=== PATIENT | male | born 1950 | race Caucasian/White ===

== ENCOUNTER 2016-12-21 10:04 | Emergency (ER) | payer BC, MEDICARE ==
[~2016-12-21 10:04] MED LIST: /GLIP10TAB OR; /ONDA4TA OR; /TAMS4CA OR; ACTO30TA OR; ALLO300T OR; ASPI81TA45 OR; DETR4CAP OR; GLUC500T3 OR; OMEP20TA7 OR; OXYC10TA12 OR; VICO5TAB OR; ZEBE5TAB OR; janumet
[2016-12-21] MEDS ORDERED: MORPHINE 4 MG/ML 1ML SYRINGE As Ordered ONE ×2 (10:31→12:15)
[2016-12-21] MEDS ORDERED: ONDANSETRON 4MG/2ML VIAL (J2405) As Ordered ONE ×2 (10:32→11:45)
[2016-12-21 10:59] LABS: BASO # 0.1 K/mm3 (0.0-0.2); BASO % 0.8 % (0.0-1.0); EOS # 0.3 K/mm3 (0.0-0.50); LARGE UNSTAINED CELL # 0.1 K/mm3 (0.0-0.4); LARGE UNSTAINED CELL % 1.5 % (0.0-4.0); LYMPH # 1.2 K/mm3 (1.5-4.5); LYMPH % 11.6 % (24.0-44.0); MEAN CORPUSCULAR HEMOGLOBIN 30.4 pg (27.0-33.0); MEAN CORPUSCULAR HGB CONC 33.2 g/dl (32.0-36.5); MEAN CORPUSCULAR VOLUME 91.7 fl (80.0-96.0); MONO # 0.8 K/mm3 (0.0-0.8); MONO % 8.5 % (0.0-5.0); NEUTROPHILS # 6.8 K/mm3 (1.8-7.7); NEUTROPHILS % 74.6 % (36.0-66.0); PLATELET COUNT, AUTOMATED 185 k/mm3 (150-450); WHITE BLOOD COUNT 9.2 K/mm3 (4.0-10.0)
--- NOTE | 2016-12-21 11:02 | REP ---
Clinical: Renal colic. Comparison: 02/20/2016. Findings: The right kidney is enlarged and demonstrates mild perinephric stranding along with grade III hydronephrosis with heterogeneous material in the proximal renal collecting system and no evidence for hydroureter, nephrolithiasis or obstructing ureteral calculus. The left kidney demonstrates mild perinephric stranding along with chronic cortical changes and atrophy as well as nonobstructing intrarenal calculi up to approximately 9 mm. No left-sided hydroureter nephrosis is appreciated and no obstructing ureteral calculi identified. The bladder is unremarkable. The prostate gland is relatively normal for age. Liver demonstrates stable 3 cm hypodensity in the right lobe which may reflect hemangioma or cyst. The spleen, pancreas, gallbladder, and bilateral adrenal glands are normal for noncontrast evaluation. The enteric system is without obstruction or acute inflammatory process. Sigmoid diverticula noted without acute diverticulitis. Pelvis again demonstrates relatively normal bladder and age appropriate prostate gland. Small fat containing inguinal hernias noted. No ascites. No adenopathy. No free air. At atherosclerotic changes of the aorta and branch vessels noted without aneurysm. Musculoskeletal structures demonstrate degenerative changes primarily involving the lumbosacral spine and left hip. Lung bases demonstrate chronic interstitial disease (left greater than right). Impression: 1. Right-sided hydronephrosis with heterogeneous debris in the renal collecting system and normal ureter without nephroureterolithiasis. Findings suggest pyelonephritis and require urinalysis for correlation. The left kidney demonstrates chronic atrophic changes and scarring along with nonobstructing calculi up to 9 mm. 2. Stable hepatic hypodensity likely representing hemangioma or cyst. Unchanged when compared through 2010. 3. Scattered sigmoid diverticula. 4. Atherosclerotic changes of the vasculature and degenerative changes the musculoskeletal structures. 5. Chronic changes of bilateral lung bases. Signed by Brad Mejia MD 12/21/2016 10:54 A
[2016-12-21 11:07] LABS: ALBUMIN 3.4 GM/DL (3.2-5.2); ALBUMIN/GLOBULIN RATIO 0.69 (1.00-1.93); BILIRUBIN,DIRECT 0.1 MG/DL (0.0-0.2); BILIRUBIN,TOTAL 0.4 MG/DL (0.2-1.0); CALCIUM LEVEL 9.3 MG/DL (8.8-10.2); CREATININE FOR GFR 2.8 MG/DL (0.70-1.30); GLOMERULAR FILTRATION RATE 24.3 (>49); POTASSIUM SERUM 4.9 MEQ/L (3.5-5.1); TOTAL PROTEIN 8.3 GM/DL (6.4-8.2)
[2016-12-21] MEDS ORDERED: PERCOCET 5MG/325MG TAB As Ordered ONE (13:41)
--- NOTE | 2016-12-21 13:52 | EDDOCDS ---
Nurse's Notes [facility] Name: Jimbo Matthews Age: 66 yrs Sex: Male : 1950 Arrival Date: 12/21/2016 Time: 10:04 Bed I3 / M3 Private MD: Pawan, [facility] Care Diagnosis: Calculus of kidney-9mm Left Intrarenal Calculus;Other hydronephrosis-Right kidney, No stone on CT (chronic);Lower abdominal pain, unspecified-RLQ with Right Flank Pain;Abnormal results of kidney function studies-Chronic Renal Failure;Diverticulosis of large intestine without perforation or abscess without bleeding Presentation: 12/21 10:10 Presenting complaint: Patient states: pain right abdominal pain that is now radiating srm to right flank. hematuria started for past week. in crease in pain. able to urinate without difficulty. hx of kidney stones. Acute neurological deficits are not present. Mechanism of Injury: No Mechanism of Injury. Adult Sepsis Screening: The patient does not have new or worsening altered mentation. Patient's respiratory rate is less than 22. Systolic blood pressure is greater than 100. Patient has a qSOFA score of 0- Negative Sepsis Screen. Suicide/Homicide risk assessment- the patient denies having any suicidal and/or homicidal ideations and does not present with any other emotional, behavioral or mental health complaints. 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 Transition of care: patient was not received from another setting of care. 10:10 Acuity: ELIAN Level 3 [facility] 10:10 Method Of Arrival: Walkin/Carried/Asstd [facility] Triage Assessment: 10:17 General: Appears uncomfortable, Behavior is appropriate for age, cooperative. Pain: srm Pain currently is 6 out of 10 on a pain scale. Musculoskeletal: Reports right flank pain'. Historical: - Allergies: no known allergies; - Home Meds: 1. loratadine 10 mg Oral tab 1 tab once daily (Last dose: 12/21/2016 07:30) 2. Dulera 100-5 mcg/actuation inhalation HFAA prn 3. amitriptyline 150 mg oral tab hs (Last dose: 12/20/2016) 4. Vitamin D Oral 30500 unit Q 2 weeks 5. omeprazole 20 mg Oral cpDR 1 cap once daily (Last dose: 12/21/2016 07:30) 6. montelukast 10 mg oral tab 1 tab once daily (Last dose: 12/21/2016 07:30) 7. Lantus 47 units Sub-Q twice a day (Last dose: 12/21/2016 07:30) 8. Humalog sliding scale Sub-Q three times a day 9. pota citrate CR 1080mg twice a day 10. allopurinol 300 mg Oral tab 1 tab once daily (Last dose: 12/21/2016 07:30) 11. tolterodine 4 mg oral cp24 1 cap once daily (Last dose: 12/21/2016 07:30) 12. carvedilol 6.25 mg oral tab 1 tab 2 times per day (Last dose: 12/21/2016 07:30) 13. furosemide 20 mg Oral tab 1 tab once daily (Last dose: 12/21/2016 07:30) 14. Entresto 24-26 mg- 1 in am and half pm oral tab 15. aspirin 81 mg Oral TbEC 1 tab weekly 16. atorvastatin 40 mg oral tab 1 tab once daily (Last dose: 12/21/2016 07:30) - PMHx: Diabetes - IDDM: controlled; Hemochromatosis; Hypertension; Kidney stones; Myocardial infarction; CHF; renal cell cancer right kidney; - PSHx: Appendectomy; Lithitripsy; - Social history: Smoking status: Chewing Tobacco No barriers to communication noted, The patient speaks fluent Afghan, Speaks appropriately for age. - Family history: Not pertinent. - : The pt / caregiver states he / she is not on anticoagulants. Home medication list is obtained from the patient. - Exposure Risk Screening:: None identified. Screenin:49 Screening information is obtained from the patient. Fall risk: No risks identified. pml Assistance ADL's: requires no assistance with activities of daily living. Abuse/DV Screen: The patient / caregiver reports he/she is: not in a situation that causes fear, pain or injury. Nutritional screening: No deficits noted. Advance Directives: Currently, there is no health care proxy. home support is adequate. Assessment: 10:49 General: Appears in no apparent distress, comfortable, Behavior is appropriate for age, pml cooperative. Pain: Pain: Location: anterior aspect of right lateral abdomen and right lower quadrant Pain currently is 7 out of 10 on a pain scale. 10:49 Neurological: Level of Consciousness is awake, alert, Oriented to person, place, time. pml Cardiovascular: Capillary refill < 3 seconds. Respiratory: Airway is patent Respiratory effort is even, unlabored, Respiratory pattern is regular, symmetrical. GI: Abdomen is non- distended. : Reports hematuria. Derm: Skin is pink, warm & dry. 11:44 General: pt up OOB to bathroom - reports nausea and dizziness. resps easy and pml unlabored, skin p/w/d. . 11:50 General: pt vomited moderate amount of undigested food. returned to stretcher, pml medicated as indicated on emar. . 12:29 General: pt reports pain in lower abdomen. medicated as indicated on emar. resps easy pml and unlabored, unable to void. straight cath'ed as ordered. . 13:42 General: continues to report lower abdominal pain. medicated as indicated on emar. pml reports nausea is resolved. peacock to gravity drainage.. 13:43 General: Appears in no apparent distress, Behavior is appropriate for age, cooperative. pml Neurological: Level of Consciousness is awake, alert, Oriented to person, place, time. Cardiovascular: Capillary refill < 3 seconds. Respiratory: Airway is patent Respiratory effort is even, unlabored. GI: Abdomen is non- distended. : Peacock in place to gravity drainage. Derm: Skin is pink, warm & dry. Vital Signs: 10:09 BP 134 / 82; Pulse 70; Resp 18; Temp 96; Pulse Ox 96% ; Weight 116.57 kg; Height 6 ft. [facility] 2 in. (187.96 cm); Pain 6/10; 13:47 BP 130 / 85; Pulse 69; Resp 16; Temp 99.3(O); Pulse Ox 92% on R/A; Pain 8/10; sew 10:09 Body Mass Index 33.00 (116.57 kg, 187.96 cm) [facility] Vitals: 10:09 Log In Time: December 21, 2016 at 10:09. [facility] ED Course: 10:08 Patient visited by Karen Kennedy, Battery Installer. [facility] 10:08 Patient moved to Waiting [facility] 10:09 [facility] Care is Private Physician. [facility] 10:09 Patient moved to Pre E [facility] 10:11 Triage Initiated srm 10:17 Patient moved to I3 / M3 srm 10:18 Abby Farrell [facility] is [facility]. ef1 10:18 Beba Melendez MD is Attending Physician. ef1 10:18 Patient visited by Abby Farrell PA-C. ef1 10:42 Amylase Sent. dls 10:42 Basic Metabolic Profile Sent. dls 10:43 CBC with Diff Sent. dls 10:43 Lipase Sent. dls 10:43 Liver Profile Sent. dls 10:48 [facility] Payment Agreement was scanned into [employer] and attached to record. jp5 10:49 The patient / caregiver is instructed regarding the plan of care and ED course. Patient pml has correct armband on for positive identification. Placed in gown. Bed in low position. Call light in reach. Side rails up X2. 10:49 Inserted peripheral IV: 18gauge IV in left antecubital area and blood collected. pml Patient tolerated the procedure well. 10:51 Patient visited by Rozina Aiken RN. pml 11:21 Patient visited by Abby Farrell PA-C. ef1 11:30 CT ABD & PELVIS: No Contrast Returned. EDMS 11:37 Patient visited by Abby Farrell PA-C. ef1 11:44 Patient visited by Rozina Aiken RN. pml 11:51 Patient visited by Rozina Aiken RN. pml 12:05 Bladder Scan completed Results: 329 ml. pml 12:11 Patient visited by Abby Farrell PA-C. ef1 12:29 Straight cath inserted 16 Fr. returned bloody urine. Patient tolerated well. pml 12:31 Patient visited by Rozina Aiken RN. pml 12:55 Patient visited by Abby Farrell PA-C. ef1 13:30 [facility] is Referral Physician. ef1 13:42 Peacock cath inserted 18 Fr. Balloon inflated. To gravity drainage. Patient tolerated pml well. 13:43 Discontinued lock intact, bleeding controlled, pressure dressing applied, No pml redness/swelling at site. No procedures done that require assistance. 13:48 Patient visited by Christen Fry. sew Administered Medications: 10:42 Drug: Ondansetron 4 mg [ondansetron HCl 2 mg/mL intravenous solution (2 mL)] Route: dls IVP; Site: left antecubital; 10:42 Drug: morphine 4 mg [morphine 4 mg/mL intravenous cartridge (1 mL)] Route: IVP; Site: dls left antecubital; 10:49 Drug: NS 0.9% 500 ml [sodium chloride 0.9 % intravenous solution] Route: IV; Rate: dls bolus; Site: left antecubital; 12:30 Follow up: IV Status: Completed infusion; IV Intake: 500ml pml 11:50 Drug: Ondansetron 4 mg [ondansetron HCl 2 mg/mL intravenous solution (2 mL)] Route: pml IVP; Site: left antecubital; 12:20 Drug: morphine 4 mg [morphine 4 mg/mL intravenous cartridge (1 mL)] Route: IVP; Site: dls left antecubital; 13:42 Drug: oxyCODONE-acetaminophen 1 tabs [oxycodone-acetaminophen 5 mg-325 mg tablet (1 pml tabs)] Route: PO; 13:45 Follow up: Response: Confirmed pt not driving.; Pt left department before re-evaluation pml is appropriate Intake: 12:30 IV: 500.00ml; Total: 500.00ml. pml Output: 12:29 Urine: 250.00ml (Straight Cath); Total: 250.00ml. pml Order Results: Lab Order: Amylase; SPEC'M 12/21/16 10:40 Test: AMYLASE; Value: 52; Range: 25-115; Units: U/L; Status: F Lab Order: Basic Metabolic Profile; SPEC'M 12/21/16 10:40 Test: GLUCOSE, FASTING; Value: 185; Range: 80-110; Abnormal: Above high normal; Units: MG/DL; Status: F Test: BLOOD UREA NITROGEN; Value: 38; Range: 7-18; Abnormal: Above high normal; Units: MG/DL; Status: F Test: CREATININE FOR GFR; Value: 2.80; Range: 0.70-1.30; Abnormal: Above high normal; Units: MG/DL; Status: F Test: GLOMERULAR FILTRATION RATE; Value: 24.3; Range: >49; Abnormal: Below low normal; Status: F Test: SODIUM LEVEL; Value: 139; Range: 136-145; Units: MEQ/L; Status: F Test: POTASSIUM SERUM; Value: 4.9; Range: 3.5-5.1; Units: MEQ/L; Status: F Test: CHLORIDE LEVEL; Value: 103; Range: 98-107; Units: MEQ/L; Status: F Test: CARBON DIOXIDE LEVEL; Value: 30; Range: 21-32; Units: MEQ/L; Status: F Test: ANION GAP; Value: 6; Range: 8-16; Abnormal: Below low normal; Units: MEQ/L; Status: F Test: CALCIUM LEVEL; Value: 9.3; Range: 8.8-10.2; Units: MG/DL; Status: F Test Note: ; Units are mL/min/1.73 m2 Chronic Kidney Disease Staging per NKF: Stage I & II GFR >=60 Normal to Mildly Decreased Stage III GFR 30-59 Moderately Decreased Stage IV GFR 15-29 Severely Decreased Stage V GFR <15 Very Little GFR Left ESRD GFR <15 on [employer] [facility] Lab Order: CBC with Diff; SPEC'M 12/21/16 10:40 Test: WHITE BLOOD COUNT; Value: 9.2; Range: 4.0-10.0; Units: K/mm3; Status: F Test: RED BLOOD COUNT; Value: 5.06; Range: 4.30-6.10; Units: M/mm3; Status: F Test: HEMOGLOBIN; Value: 15.4; Range: 14.0-18.0; Units: g/dl; Status: F Test: HEMATOCRIT; Value: 46.4; Range: 42.0-52.0; Units: %; Status: F Test: MEAN CORPUSCULAR VOLUME; Value: 91.7; Range: 80.0-96.0; Units: fl; Status: F Test: MEAN CORPUSCULAR HEMOGLOBIN; Value: 30.4; Range: 27.0-33.0; Units: pg; Status: F Test: MEAN CORPUSCULAR HGB CONC; Value: 33.2; Range: 32.0-36.5; Units: g/dl; Status: F Test: RED CELL DISTRIBUTION WIDTH; Value: 21.0; Range: 11.5-14.5; Abnormal: Above high normal; Units: %; Status: F Test: PLATELET COUNT, AUTOMATED; Value: 185; Range: 150-450; Units: k/mm3; Status: F Test: NEUTROPHILS %; Value: 74.6; Range: 36.0-66.0; Abnormal: Above high normal; Units: %; Status: F Test: LYMPH %; Value: 11.6; Range: 24.0-44.0; Abnormal: Below low normal; Units: %; Status: F Test: MONO %; Value: 8.5; Range: 0.0-5.0; Abnormal: Above high normal; Units: %; Status: F Test: EOS %; Value: 3.0; Range: 0.0-3.0; Units: %; Status: F Test: BASO %; Value: 0.8; Range: 0.0-1.0; Units: %; Status: F Test: LARGE UNSTAINED CELL %; Value: 1.5; Range: 0.0-4.0; Units: %; Status: F Test: NEUTROPHILS #; Value: 6.8; Range: 1.8-7.7; Units: K/mm3; Status: F Test: LYMPH #; Value: 1.2; Range: 1.5-4.5; Abnormal: Below low normal; Units: K/mm3; Status: F Test: MONO #; Value: 0.8; Range: 0.0-0.8; Units: K/mm3; Status: F Test: EOS #; Value: 0.3; Range: 0.0-0.50; Units: K/mm3; Status: F Test: BASO #; Value: 0.1; Range: 0.0-0.2; Units: K/mm3; Status: F Test: LARGE UNSTAINED CELL #; Value: 0.1; Range: 0.0-0.4; Units: K/mm3; Status: F Lab Order: Lipase; SPEC'M 12/21/16 10:40 Test: LIPASE; Value: 146; Range: 73-393; Units: U/L; Status: F Lab Order: Liver Profile; SPEC'M 12/21/16 10:40 Test: AST/SGOT; Value: 22; Range: 15-37; Units: U/L; Status: F Test: ALT/SGPT; Value: 24; Range: 12-78; Units: U/L; Status: F Test: ALKALINE PHOSPHATASE; Value: 131; Range: 45-117; Abnormal: Above high normal; Units: U/L; Status: F Test: BILIRUBIN,TOTAL; Value: 0.4; Range: 0.2-1.0; Units: MG/DL; Status: F Test: BILIRUBIN,DIRECT; Value: 0.1; Range: 0.0-0.2; Units: MG/DL; Status: F Test: TOTAL PROTEIN; Value: 8.3; Range: 6.4-8.2; Abnormal: Above high normal; Units: GM/DL; Status: F Test: ALBUMIN; Value: 3.4; Range: 3.2-5.2; Units: GM/DL; Status: F Test: ALBUMIN/GLOBULIN RATIO; Value: 0.69; Range: 1.00-1.93; Abnormal: Below low normal; Status: F Lab Order: Urinalysis; SPEC'M 12/21/16 12:28 Test: APPEARANCE, URINE; Value: HAZY; Range: CLEAR; Status: F Test: COLOR, URINE; Value: YELLOW; Range: YELLOW; Status: F Test: PH,URINE; Value: 7.0; Range: 5.0-9.0; Units: UNITS; Status: F Test: SPECIFIC GRAVITY URINE AUTO; Value: 1.010; Range: 1.002-1.035; Status: F Test: PROTEIN, URINE AUTO; Value: 2+; Range: NEGATIVE; Abnormal: Above high normal; Units: mg/dL; Status: F Test: GLUCOSE, URINE (UA) AUTO; Value: 1+; Range: NEGATIVE; Abnormal: Above high normal; Units: mg/dL; Status: F Test: KETONE, URINE AUTO; Value: NEGATIVE; Range: NEGATIVE; Units: mg/dL; Status: F Test: UROBILINOGEN, URINE AUTO; Value: 0.2; Range: 0.0-2.0; Units: mg/dL; Status: F Test: BILIRUBIN, URINE AUTO; Value: NEGATIVE; Range: NEGATIVE; Status: F Test: NITRITE, URINE AUTO; Value: NEGATIVE; Range: NEGATIVE; Status: F Test: LEUKOCYTE ESTERASE, URINE AUTO; Value: TRACE; Range: NEGATIVE; Abnormal: Above high normal; Status: F Test: BLOOD, URINE BLOOD; Value: 3+; Range: NEGATIVE; Abnormal: Above high normal; Status: F Test: WBC, URINE AUTO; Value: 0; Range: 0-3; Units: /HPF; Status: F Test: RBC, URINE AUTO; Value: TNTC; Range: 0-3; Abnormal: Above high normal; Units: /HPF; Status: F Test: BACTERIA, URINE AUTO; Value: NEGATIVE; Range: NEGATIVE; Status: F Test: SQUAMOUS EPITHELIAL CELL UR AU; Value: 0; Range: 0-6; Units: /HPF; Status: F Test: HYALINE CAST, URINE AUTO; Value: 0; Range: 0-1; Units: /LPF; Status: F Radiology Order: CT ABD & PELVIS: No Contrast Test: CT ABD & PELVIS: No Contrast REASON FOR EXAMINATION: Renal colic; Clinical: Renal colic.; ; Comparison: 02/20/2016.; ; Findings:; The right kidney is enlarged and demonstrates mild perinephric stranding along; with grade III hydronephrosis with heterogeneous material in the proximal renal; collecting system and no evidence for hydroureter, nephrolithiasis or obstructing; ureteral calculus. The left kidney demonstrates mild perinephric stranding along; with chronic cortical changes and atrophy as well as nonobstructing intrarenal; calculi up to approximately 9 mm. No left-sided hydroureter nephrosis is; appreciated and no obstructing ureteral calculi identified. The bladder is; unremarkable. The prostate gland is relatively normal for age.; ; Liver demonstrates stable 3 cm hypodensity in the right lobe which may reflect; hemangioma or cyst. The spleen, pancreas, gallbladder, and bilateral adrenal; glands are normal for noncontrast evaluation. The enteric system is without; obstruction or acute inflammatory process. Sigmoid diverticula noted without; acute diverticulitis. Pelvis again demonstrates relatively normal bladder and; age appropriate prostate gland. Small fat containing inguinal hernias noted. No; ascites. No adenopathy. No free air. At atherosclerotic changes of the aorta; and branch vessels noted without aneurysm. Musculoskeletal structures; demonstrate degenerative changes primarily involving the lumbosacral spine and; left hip. Lung bases demonstrate chronic interstitial disease (left greater than; right).; ; Impression:; 1. Right-sided hydronephrosis with heterogeneous debris in the renal collecting; system and normal ureter without nephroureterolithiasis. Findings suggest; pyelonephritis and require urinalysis for correlation. The left kidney; demonstrates chronic atrophic changes and scarring along with nonobstructing; calculi up to 9 mm.; 2. Stable hepatic hypodensity likely representing hemangioma or cyst. Unchanged; when compared through 2010.; 3. Scattered sigmoid diverticula.; 4. Atherosclerotic changes of the vasculature and degenerative changes the; musculoskeletal structures.; 5. Chronic changes of bilateral lung bases.; ; ; Signed by; Brad Mejia MD 12/21/2016 10:54 A; Outcome: 13:30 Discharge ordered by Provider. ef1 13:43 Discharge Assessment: Patient awake, alert and oriented x 3. No cognitive and/or pml functional deficits noted. Patient verbalized understanding of disposition instructions. patient administered narcotics - yes. Pt provided with safe discharge. The following High Risk Discharge criteria are identified: None. Discharged to home ambulatory. Condition: good Condition: stable. Discharge instructions given to patient, Instructed on discharge instructions, follow up and referral plans. medication usage, peacock catheter care. Demonstrated understanding of instructions, medications, Pt was receptive of discharge instructions/ teaching. Prescriptions given X 3. CT Study completed. Property sent home with patient. 13:51 Patient left the ED. pml Signatures: Dispatcher [employer] EDMS Sidra Cavanaugh, RN RN Katherine Burkett RN RN Abby Eldridge, PA-C PA-C ef1 Rozina Aiken RN RN pml Christen Fry Jessie, Battery Installer Unit Emily Eldridge jp5 Corrections: (The following items were deleted from the chart) 10:50 10:49 Pain: pml pml MTDLina
--- NOTE | 2016-12-21 13:52 | EDDOCDS ---
Physician Documentation [facility] Name: Jimbo Matthews Age: 66 yrs Sex: Male : 1950 Arrival Date: 12/21/2016 Time: 10:04 Bed I3 / M3 Private MD: Pawan, [facility] Disposition: 12/21/16 13:30 Discharged to Home/Self Care. Impression: Calculus of kidney - 9mm Left Intrarenal Calculus, Other hydronephrosis - Right kidney, No stone on CT (chronic), Lower abdominal pain, unspecified - RLQ with Right Flank Pain, Abnormal results of kidney function studies - Chronic Renal Failure, Diverticulosis of large intestine without perforation or abscess without bleeding. - Condition is Stable. - Discharge Instructions: Abdominal Pain, Adult, Flank Pain, Kidney Stones. - Prescriptions for Reglan 10 mg Oral Tablet - take 1 tablet by ORAL route every 6 hours take 30 minutes before meals and at bedtime; 20 tablet. Flomax 0.4 mg Oral Capsule, Sust. Release 24 hr - take 1 capsule by ORAL route once daily 1/2 hour following the same meal each day; 30 capsule. Percocet 5- 325 mg Oral Tablet - take 1 tablet by ORAL route every 6 hours As needed MDD: 4 tabs; 20 tablet. - Medication Reconciliation, Local Pharmacy Hours form. - Follow up: [facility] Pawan; When: 1 - 2 days; Reason: Recheck today's complaints, Continuance of care. Follow up: Emergency Department; Reason: Worsening of conditions. - Problem is new. - Symptoms have improved. - Notes: Pt understands to f/u with his Urologist in 1-2 days or in the ER sooner if s/s worsen. Historical: - Allergies: no known allergies; - Home Meds: 1. loratadine 10 mg Oral tab 1 tab once daily (Last dose: 12/21/2016 07:30) 2. Dulera 100-5 mcg/actuation inhalation HFAA prn 3. amitriptyline 150 mg oral tab hs (Last dose: 12/20/2016) 4. Vitamin D Oral 95772 unit Q 2 weeks 5. omeprazole 20 mg Oral cpDR 1 cap once daily (Last dose: 12/21/2016 07:30) 6. montelukast 10 mg oral tab 1 tab once daily (Last dose: 12/21/2016 07:30) 7. Lantus 47 units Sub-Q twice a day (Last dose: 12/21/2016 07:30) 8. Humalog sliding scale Sub-Q three times a day 9. pota citrate CR 1080mg twice a day 10. allopurinol 300 mg Oral tab 1 tab once daily (Last dose: 12/21/2016 07:30) 11. tolterodine 4 mg oral cp24 1 cap once daily (Last dose: 12/21/2016 07:30) 12. carvedilol 6.25 mg oral tab 1 tab 2 times per day (Last dose: 12/21/2016 07:30) 13. furosemide 20 mg Oral tab 1 tab once daily (Last dose: 12/21/2016 07:30) 14. Entresto 24-26 mg- 1 in am and half pm oral tab 15. aspirin 81 mg Oral TbEC 1 tab weekly 16. atorvastatin 40 mg oral tab 1 tab once daily (Last dose: 12/21/2016 07:30) - PMHx: Diabetes - IDDM: controlled; Hemochromatosis; Hypertension; Kidney stones; Myocardial infarction; CHF; renal cell cancer right kidney; - PSHx: Appendectomy; Lithitripsy; - Social history: Smoking status: Chewing Tobacco No barriers to communication noted, The patient speaks fluent [place]ian, Speaks appropriately for age. - Family history: Not pertinent. - : The pt / caregiver states he / she is not on anticoagulants. Home medication list is obtained from the patient. - Exposure Risk Screening:: None identified. Vital Signs: 12/21 10:09 BP 134 / 82; Pulse 70; Resp 18; Temp 96; Pulse Ox 96% ; Weight 116.57 kg / 256.99 lbs; jlm Height 6 ft. 2 in. (187.96 cm); Pain 6/10; 13:47 BP 130 / 85; Pulse 69; Resp 16; Temp 99.3(O); Pulse Ox 92% on R/A; Pain 8/10; sew 10:09 Body Mass Index 33.00 (116.57 kg, 187.96 cm) jl MDM: 10:19 Ondansetron 4 mg IVP once ordered. ef1 10:19 IV Saline Lock ordered. ef1 10:19 Undress patient appropriately for examination ordered. ef1 10:20 morphine 4 mg IVP once ordered. ef1 10:20 Amylase Ordered. EDMS 10:20 Basic Metabolic Profile Ordered. EDMS 10:20 CBC with Diff Ordered. EDMS 10:20 Lipase Ordered. EDMS 10:20 Liver Profile Ordered. EDMS 10:20 Urinalysis Ordered. EDMS 10:20 Urine Culture Ordered. EDMS 10:20 CT ABD & PELVIS: No Contrast Ordered. EDMS 10:21 NOTHING BY MOUTH+DIET ordered. EDMS 10:38 NS 0.9% 500 ml IV at bolus once ordered. ef1 10:48 [facility] Payment Agreement was scanned into [employer] and attached to record. jp5 10:48 Financial registration complete. jp5 11:37 Basic Metabolic Profile Reviewed. ef1 11:37 CBC with Diff Reviewed. ef1 11:37 Liver Profile Reviewed. ef1 11:37 Amylase Reviewed. ef1 11:37 Lipase Reviewed. ef1 11:37 CT ABD & PELVIS: No Contrast Reviewed. ef1 11:44 Ondansetron 4 mg IVP once ordered. ef1 12:00 Bladder Scan please ordered. ef1 12:14 morphine 4 mg IVP once ordered. ef1 12:14 Straight cath ordered. ef1 12:55 Urinalysis Reviewed. ef1 13:06 ECG WITH READING ER PHYS+CARDIAG ordered. EDMS 13:23 Barnhart ordered. ef1 13:30 oxyCODONE-acetaminophen 5 mg-325 mg 1 tabs PO once ordered. ef1 13:40 Misc [employer] Order ordered. ef1 13:43 [facility] [employer] Order complete. pml Administered Medications: 10:42 Drug: Ondansetron 4 mg [ondansetron HCl 2 mg/mL intravenous solution (2 mL)] Route: dls IVP; Site: left antecubital; 10:42 Drug: morphine 4 mg [morphine 4 mg/mL intravenous cartridge (1 mL)] Route: IVP; Site: dls left antecubital; 10:49 Drug: NS 0.9% 500 ml [sodium chloride 0.9 % intravenous solution] Route: IV; Rate: dls bolus; Site: left antecubital; 12:30 Follow up: IV Status: Completed infusion; IV Intake: 500ml pml 11:50 Drug: Ondansetron 4 mg [ondansetron HCl 2 mg/mL intravenous solution (2 mL)] Route: pml IVP; Site: left antecubital; 12:20 Drug: morphine 4 mg [morphine 4 mg/mL intravenous cartridge (1 mL)] Route: IVP; Site: dls left antecubital; 13:42 Drug: oxyCODONE-acetaminophen 1 tabs [oxycodone-acetaminophen 5 mg-325 mg tablet (1 pml tabs)] Route: PO; 13:45 Follow up: Response: Confirmed pt not driving.; Pt left department before re-evaluation pml is appropriate Signatures: Dispatcher [employer] EDSidra Rasmussen, RN RN srm Abby Farrell PAElpidioC PA-C ef1 Rozina Aiken RN RN pml Price, Jennalee jp5 Katherine Sharma RN The chart was reviewed and I authenticate all verbal orders and agree with the evaluation and treatment provided.Corrections: (The following items were deleted from the chart) 13:45 13:06 BED REQUEST+ADM ordered. EDMS EDMS Attachments: 10:48 [facility] Payment Agreement jp5 MTDD
--- NOTE | 2016-12-23 14:52 | EDDOCDS ---
Nurse's Notes [facility] Name: Jimbo Matthews Age: 66 yrs Sex: Male : 1950 Arrival Date: 12/21/2016 Time: 10:04 Bed I3 / M3 Private MD: Pawan, [facility] Care Diagnosis: Calculus of kidney-9mm Left Intrarenal Calculus;Other hydronephrosis-Right kidney, No stone on CT (chronic);Lower abdominal pain, unspecified-RLQ with Right Flank Pain;Abnormal results of kidney function studies-Chronic Renal Failure;Diverticulosis of large intestine without perforation or abscess without bleeding Presentation: 12/21 10:10 Presenting complaint: Patient states: pain right abdominal pain that is now radiating srm to right flank. hematuria started for past week. in crease in pain. able to urinate without difficulty. hx of kidney stones. Acute neurological deficits are not present. Mechanism of Injury: No Mechanism of Injury. Adult Sepsis Screening: The patient does not have new or worsening altered mentation. Patient's respiratory rate is less than 22. Systolic blood pressure is greater than 100. Patient has a qSOFA score of 0- Negative Sepsis Screen. Suicide/Homicide risk assessment- the patient denies having any suicidal and/or homicidal ideations and does not present with any other emotional, behavioral or mental health complaints. Status: Patient is not a business services officer or dependent. Transition of care: patient was not received from another setting of care. 10:10 Acuity: [facility] 10:10 Method Of Arrival: Walkin/[facility]ried[facility] Triage Assessment: 10:17 General: Appears uncomfortable, Behavior is appropriate for age, cooperative. Pain: srm Pain currently is 6 out of 10 on a pain scale. Musculoskeletal: Reports right flank pain'. Historical: - Allergies: no known allergies; - Home Meds: 1. loratadine 10 mg Oral tab 1 tab once daily (Last dose: 12/21/2016 07:30) 2. Dulera 100-5 mcg/actuation inhalation HFAA prn 3. amitriptyline 150 mg oral tab hs (Last dose: 12/20/2016) 4. Vitamin D Oral 02818 unit Q 2 weeks 5. omeprazole 20 mg Oral cpDR 1 cap once daily (Last dose: 12/21/2016 07:30) 6. montelukast 10 mg oral tab 1 tab once daily (Last dose: 12/21/2016 07:30) 7. Lantus 47 units Sub-Q twice a day (Last dose: 12/21/2016 07:30) 8. Humalog sliding scale Sub-Q three times a day 9. pota citrate CR 1080mg twice a day 10. allopurinol 300 mg Oral tab 1 tab once daily (Last dose: 12/21/2016 07:30) 11. tolterodine 4 mg oral cp24 1 cap once daily (Last dose: 12/21/2016 07:30) 12. carvedilol 6.25 mg oral tab 1 tab 2 times per day (Last dose: 12/21/2016 07:30) 13. furosemide 20 mg Oral tab 1 tab once daily (Last dose: 12/21/2016 07:30) 14. Entresto 24-26 mg- 1 in am and half pm oral tab 15. aspirin 81 mg Oral TbEC 1 tab weekly 16. atorvastatin 40 mg oral tab 1 tab once daily (Last dose: 12/21/2016 07:30) - PMHx: Diabetes - IDDM: controlled; Hemochromatosis; Hypertension; Kidney stones; Myocardial infarction; CHF; renal cell cancer right kidney; - PSHx: Appendectomy; Lithitripsy; - Social history: Smoking status: Chewing Tobacco No barriers to communication noted, The patient speaks fluent Pakistani, Speaks appropriately for age. - Family history: Not pertinent. - : The pt / caregiver states he / she is not on anticoagulants. Home medication list is obtained from the patient. - Exposure Risk Screening:: None identified. Screenin:49 Screening information is obtained from the patient. Fall risk: No risks identified. pml Assistance ADL's: requires no assistance with activities of daily living. Abuse/DV Screen: The patient / caregiver reports he/she is: not in a situation that causes fear, pain or injury. Nutritional screening: No deficits noted. Advance Directives: Currently, there is no health care proxy. home support is adequate. Assessment: 10:49 General: Appears in no apparent distress, comfortable, Behavior is appropriate for age, pml cooperative. Pain: Pain: Location: anterior aspect of right lateral abdomen and right lower quadrant Pain currently is 7 out of 10 on a pain scale. 10:49 Neurological: Level of Consciousness is awake, alert, Oriented to person, place, time. pml Cardiovascular: Capillary refill < 3 seconds. Respiratory: Airway is patent Respiratory effort is even, unlabored, Respiratory pattern is regular, symmetrical. GI: Abdomen is non- distended. : Reports hematuria. Derm: Skin is pink, warm & dry. 11:44 General: pt up OOB to bathroom - reports nausea and dizziness. resps easy and pml unlabored, skin p/w/d. . 11:50 General: pt vomited moderate amount of undigested food. returned to stretcher, pml medicated as indicated on emar. . 12:29 General: pt reports pain in lower abdomen. medicated as indicated on emar. resps easy pml and unlabored, unable to void. straight cath'ed as ordered. . 13:42 General: continues to report lower abdominal pain. medicated as indicated on emar. pml reports nausea is resolved. peacock to gravity drainage.. 13:43 General: Appears in no apparent distress, Behavior is appropriate for age, cooperative. pml Neurological: Level of Consciousness is awake, alert, Oriented to person, place, time. Cardiovascular: Capillary refill < 3 seconds. Respiratory: Airway is patent Respiratory effort is even, unlabored. GI: Abdomen is non- distended. : Peacock in place to gravity drainage. Derm: Skin is pink, warm & dry. Vital Signs: 10:09 BP 134 / 82; Pulse 70; Resp 18; Temp 96; Pulse Ox 96% ; Weight 116.57 kg; Height 6 ft. [facility] 2 in. (187.96 cm); Pain 6/10; 13:47 BP 130 / 85; Pulse 69; Resp 16; Temp 99.3(O); Pulse Ox 92% on R/A; Pain 8/10; sew 10:09 Body Mass Index 33.00 (116.57 kg, 187.96 cm) [facility] Vitals: 10:09 Log In Time: December 21, 2016 at 10:09. [facility] ED Course: 10:08 Patient visited by Karen Kennedy, Trust Accounts Supervisor. [facility] 10:08 Patient moved to Waiting [facility] 10:09 [facility] is Private Physician. [facility] 10:09 Patient moved to Pre E [facility] 10:11 Triage Initiated srm 10:17 Patient moved to I3 / M3 srm 10:18 [facility] Farrell [facility]-C [facility]. ef1 10:18 Beba Melendez MD is Attending Physician. ef1 10:18 Patient visited by Abby Farrell PA-C. ef1 10:42 Amylase Sent. dls 10:42 Basic Metabolic Profile Sent. dls 10:43 CBC with Diff Sent. dls 10:43 Lipase Sent. dls 10:43 Liver Profile Sent. dls 10:48 [facility] Payment Agreement was scanned into [employer] and attached to record. jp5 10:49 The patient / caregiver is instructed regarding the plan of care and ED course. Patient pml has correct armband on for positive identification. Placed in gown. Bed in low position. Call light in reach. Side rails up X2. 10:49 Inserted peripheral IV: 18gauge IV in left antecubital area and blood collected. pml Patient tolerated the procedure well. 10:51 Patient visited by Rozina Aiken RN. pml 11:21 Patient visited by Abby Farrell PA-C. ef1 11:30 CT ABD & PELVIS: No Contrast Returned. EDMS 11:37 Patient visited by Abby Farrell PA-C. ef1 11:44 Patient visited by Rozina Aiken RN. pml 11:51 Patient visited by Rozina Aiken RN. pml 12:05 Bladder Scan completed Results: 329 ml. pml 12:11 Patient visited by Abby Farrell PA-C. ef1 12:29 Straight cath inserted 16 Fr. returned bloody urine. Patient tolerated well. pml 12:31 Patient visited by Rozina Aiken RN. pml 12:55 Patient visited by Abby Farrell PA-C. ef1 13:30 [facility] is Referral Physician. ef1 13:42 Peacock cath inserted 18 Fr. Balloon inflated. To gravity drainage. Patient tolerated pml well. 13:43 Discontinued lock intact, bleeding controlled, pressure dressing applied, No pml redness/swelling at site. No procedures done that require assistance. 13:48 Patient visited by Christen Fry. sew 17:42 T-Sheet-- Draft Copy was scanned into [employer] and attached to record. klr 12/22 12:23 Radiology Report was scanned into [employer] and attached to record. gb Administered Medications: 12/21 10:42 Drug: Ondansetron 4 mg [ondansetron HCl 2 mg/mL intravenous solution (2 mL)] Route: dls IVP; Site: left antecubital; 10:42 Drug: morphine 4 mg [morphine 4 mg/mL intravenous cartridge (1 mL)] Route: IVP; Site: dls left antecubital; 10:49 Drug: NS 0.9% 500 ml [sodium chloride 0.9 % intravenous solution] Route: IV; Rate: dls bolus; Site: left antecubital; 12:30 Follow up: IV Status: Completed infusion; IV Intake: 500ml pml 11:50 Drug: Ondansetron 4 mg [ondansetron HCl 2 mg/mL intravenous solution (2 mL)] Route: pml IVP; Site: left antecubital; 12:20 Drug: morphine 4 mg [morphine 4 mg/mL intravenous cartridge (1 mL)] Route: IVP; Site: dls left antecubital; 13:42 Drug: oxyCODONE-acetaminophen 1 tabs [oxycodone-acetaminophen 5 mg-325 mg tablet (1 pml tabs)] Route: PO; 13:45 Follow up: Response: Confirmed pt not driving.; Pt left department before re-evaluation pml is appropriate Intake: 12:30 IV: 500.00ml; Total: 500.00ml. pml Output: 12:29 Urine: 250.00ml (Straight Cath); Total: 250.00ml. pml Order Results: Lab Order: Amylase; SPEC'M 12/21/16 10:40 Test: AMYLASE; Value: 52; Range: 25-115; Units: U/L; Status: F Lab Order: Basic Metabolic Profile; SPEC'M 12/21/16 10:40 Test: GLUCOSE, FASTING; Value: 185; Range: 80-110; Abnormal: Above high normal; Units: MG/DL; Status: F Test: BLOOD UREA NITROGEN; Value: 38; Range: 7-18; Abnormal: Above high normal; Units: MG/DL; Status: F Test: CREATININE FOR GFR; Value: 2.80; Range: 0.70-1.30; Abnormal: Above high normal; Units: MG/DL; Status: F Test: GLOMERULAR FILTRATION RATE; Value: 24.3; Range: >49; Abnormal: Below low normal; Status: F Test: SODIUM LEVEL; Value: 139; Range: 136-145; Units: MEQ/L; Status: F Test: POTASSIUM SERUM; Value: 4.9; Range: 3.5-5.1; Units: MEQ/L; Status: F Test: CHLORIDE LEVEL; Value: 103; Range: 98-107; Units: MEQ/L; Status: F Test: CARBON DIOXIDE LEVEL; Value: 30; Range: 21-32; Units: MEQ/L; Status: F Test: ANION GAP; Value: 6; Range: 8-16; Abnormal: Below low normal; Units: MEQ/L; Status: F Test: CALCIUM LEVEL; Value: 9.3; Range: 8.8-10.2; Units: MG/DL; Status: F Test Note: ; Units are mL/min/1.73 m2 Chronic Kidney Disease Staging per NKF: Stage I & II GFR >=60 Normal to Mildly Decreased Stage III GFR 30-59 Moderately Decreased Stage IV GFR 15-29 Severely Decreased Stage V GFR <15 Very Little GFR Left ESRD GFR <15 on LICENSED PSYCHOLOGIST DIRECTOR Lab Order: CBC with Diff; SPEC'M 12/21/16 10:40 Test: WHITE BLOOD COUNT; Value: 9.2; Range: 4.0-10.0; Units: K/mm3; Status: F Test: RED BLOOD COUNT; Value: 5.06; Range: 4.30-6.10; Units: M/mm3; Status: F Test: HEMOGLOBIN; Value: 15.4; Range: 14.0-18.0; Units: g/dl; Status: F Test: HEMATOCRIT; Value: 46.4; Range: 42.0-52.0; Units: %; Status: F Test: MEAN CORPUSCULAR VOLUME; Value: 91.7; Range: 80.0-96.0; Units: fl; Status: F Test: MEAN CORPUSCULAR HEMOGLOBIN; Value: 30.4; Range: 27.0-33.0; Units: pg; Status: F Test: MEAN CORPUSCULAR HGB CONC; Value: 33.2; Range: 32.0-36.5; Units: g/dl; Status: F Test: RED CELL DISTRIBUTION WIDTH; Value: 21.0; Range: 11.5-14.5; Abnormal: Above high normal; Units: %; Status: F Test: PLATELET COUNT, AUTOMATED; Value: 185; Range: 150-450; Units: k/mm3; Status: F Test: NEUTROPHILS %; Value: 74.6; Range: 36.0-66.0; Abnormal: Above high normal; Units: %; Status: F Test: LYMPH %; Value: 11.6; Range: 24.0-44.0; Abnormal: Below low normal; Units: %; Status: F Test: MONO %; Value: 8.5; Range: 0.0-5.0; Abnormal: Above high normal; Units: %; Status: F Test: EOS %; Value: 3.0; Range: 0.0-3.0; Units: %; Status: F Test: BASO %; Value: 0.8; Range: 0.0-1.0; Units: %; Status: F Test: LARGE UNSTAINED CELL %; Value: 1.5; Range: 0.0-4.0; Units: %; Status: F Test: NEUTROPHILS #; Value: 6.8; Range: 1.8-7.7; Units: K/mm3; Status: F Test: LYMPH #; Value: 1.2; Range: 1.5-4.5; Abnormal: Below low normal; Units: K/mm3; Status: F Test: MONO #; Value: 0.8; Range: 0.0-0.8; Units: K/mm3; Status: F Test: EOS #; Value: 0.3; Range: 0.0-0.50; Units: K/mm3; Status: F Test: BASO #; Value: 0.1; Range: 0.0-0.2; Units: K/mm3; Status: F Test: LARGE UNSTAINED CELL #; Value: 0.1; Range: 0.0-0.4; Units: K/mm3; Status: F Lab Order: Lipase; SPEC12/21/16 10:40 Test: LIPASE; Value: 146; Range: 73-393; Units: U/L; Status: F Lab Order: Liver Profile; SPEC' 12/21/16 10:40 Test: AST/SGOT; Value: 22; Range: 15-37; Units: U/L; Status: F Test: ALT/SGPT; Value: 24; Range: 12-78; Units: U/L; Status: F Test: ALKALINE PHOSPHATASE; Value: 131; Range: 45-117; Abnormal: Above high normal; Units: U/L; Status: F Test: BILIRUBIN,TOTAL; Value: 0.4; Range: 0.2-1.0; Units: MG/DL; Status: F Test: BILIRUBIN,DIRECT; Value: 0.1; Range: 0.0-0.2; Units: MG/DL; Status: F Test: TOTAL PROTEIN; Value: 8.3; Range: 6.4-8.2; Abnormal: Above high normal; Units: GM/DL; Status: F Test: ALBUMIN; Value: 3.4; Range: 3.2-5.2; Units: GM/DL; Status: F Test: ALBUMIN/GLOBULIN RATIO; Value: 0.69; Range: 1.00-1.93; Abnormal: Below low normal; Status: F Lab Order: Urinalysis; SPEC'M 12/21/16 12:28 Test: APPEARANCE, URINE; Value: HAZY; Range: CLEAR; Status: F Test: COLOR, URINE; Value: YELLOW; Range: YELLOW; Status: F Test: PH,URINE; Value: 7.0; Range: 5.0-9.0; Units: UNITS; Status: F Test: SPECIFIC GRAVITY URINE AUTO; Value: 1.010; Range: 1.002-1.035; Status: F Test: PROTEIN, URINE AUTO; Value: 2+; Range: NEGATIVE; Abnormal: Above high normal; Units: mg/dL; Status: F Test: GLUCOSE, URINE (UA) AUTO; Value: 1+; Range: NEGATIVE; Abnormal: Above high normal; Units: mg/dL; Status: F Test: KETONE, URINE AUTO; Value: NEGATIVE; Range: NEGATIVE; Units: mg/dL; Status: F Test: UROBILINOGEN, URINE AUTO; Value: 0.2; Range: 0.0-2.0; Units: mg/dL; Status: F Test: BILIRUBIN, URINE AUTO; Value: NEGATIVE; Range: NEGATIVE; Status: F Test: NITRITE, URINE AUTO; Value: NEGATIVE; Range: NEGATIVE; Status: F Test: LEUKOCYTE ESTERASE, URINE AUTO; Value: TRACE; Range: NEGATIVE; Abnormal: Above high normal; Status: F Test: BLOOD, URINE BLOOD; Value: 3+; Range: NEGATIVE; Abnormal: Above high normal; Status: F Test: WBC, URINE AUTO; Value: 0; Range: 0-3; Units: /HPF; Status: F Test: RBC, URINE AUTO; Value: TNTC; Range: 0-3; Abnormal: Above high normal; Units: /HPF; Status: F Test: BACTERIA, URINE AUTO; Value: NEGATIVE; Range: NEGATIVE; Status: F Test: SQUAMOUS EPITHELIAL CELL UR AU; Value: 0; Range: 0-6; Units: /HPF; Status: F Test: HYALINE CAST, URINE AUTO; Value: 0; Range: 0-1; Units: /LPF; Status: F Lab Order: Urine Culture; SPEC'M 12/21/16 12:28 Test: URINE CULTURE; Value: <EXTERNAL COMMENT eCWMed> FULL REPORT IN LAB NOTES (eCW and [employer]).; Status: F Test: URINE CULTURE; Value: URINE CULTURE RESULT NO GROWTH; Status: F Radiology Order: CT ABD & PELVIS: No Contrast Test: CT ABD & PELVIS: No Contrast REASON FOR EXAMINATION: Renal colic; Clinical: Renal colic.; ; Comparison: 02/20/2016.; ; Findings:; The right kidney is enlarged and demonstrates mild perinephric stranding along; with grade III hydronephrosis with heterogeneous material in the proximal renal; collecting system and no evidence for hydroureter, nephrolithiasis or obstructing; ureteral calculus. The left kidney demonstrates mild perinephric stranding along; with chronic cortical changes and atrophy as well as nonobstructing intrarenal; calculi up to approximately 9 mm. No left-sided hydroureter nephrosis is; appreciated and no obstructing ureteral calculi identified. The bladder is; unremarkable. The prostate gland is relatively normal for age.; ; Liver demonstrates stable 3 cm hypodensity in the right lobe which may reflect; hemangioma or cyst. The spleen, pancreas, gallbladder, and bilateral adrenal; glands are normal for noncontrast evaluation. The enteric system is without; obstruction or acute inflammatory process. Sigmoid diverticula noted without; acute diverticulitis. Pelvis again demonstrates relatively normal bladder and; age appropriate prostate gland. Small fat containing inguinal hernias noted. No; ascites. No adenopathy. No free air. At atherosclerotic changes of the aorta; and branch vessels noted without aneurysm. Musculoskeletal structures; demonstrate degenerative changes primarily involving the lumbosacral spine and; left hip. Lung bases demonstrate chronic interstitial disease (left greater than; right).; ; Impression:; 1. Right-sided hydronephrosis with heterogeneous debris in the renal collecting; system and normal ureter without nephroureterolithiasis. Findings suggest; pyelonephritis and require urinalysis for correlation. The left kidney; demonstrates chronic atrophic changes and scarring along with nonobstructing; calculi up to 9 mm.; 2. Stable hepatic hypodensity likely representing hemangioma or cyst. Unchanged; when compared through 2010.; 3. Scattered sigmoid diverticula.; 4. Atherosclerotic changes of the vasculature and degenerative changes the; musculoskeletal structures.; 5. Chronic changes of bilateral lung bases.; ; ; Signed by; Brad Mejia MD 12/21/2016 10:54 A; Outcome: 13:30 Discharge ordered by Provider. ef1 13:43 Discharge Assessment: Patient awake, alert and oriented x 3. No cognitive and/or pml functional deficits noted. Patient verbalized understanding of disposition instructions. patient administered narcotics - yes. Pt provided with safe discharge. The following High Risk Discharge criteria are identified: None. Discharged to home ambulatory. Condition: good Condition: stable. Discharge instructions given to patient, Instructed on discharge instructions, follow up and referral plans. medication usage, peacock catheter care. Demonstrated understanding of instructions, medications, Pt was receptive of discharge instructions/ teaching. Prescriptions given X 3. CT Study completed. Property sent home with patient. 13:51 Patient left the ED. pml Signatures: Dispatcher [employer] EDMS Sidra Cavanaugh RN RN srm Scott, Debra, RN RN [facility] Rcohelle Mcguire, Reg Reg Abby Bolton, PA-C PA-C ef1 Rozina Aiken RN RN pml Wallace, Sarah sew Mitchell, Jessie, Trust Accounts Supervisor Unit Emily Eldridge Kathie klr Corrections: (The following items were deleted from the chart) 10:50 10:49 Pain: pml pml Chart Complete MTDD
--- NOTE | 2016-12-23 14:52 | EDDOCDS ---
Physician Documentation [facility] Name: Jimbo Matthews Age: 66 yrs Sex: Male : 1950 Arrival Date: 12/21/2016 Time: 10:04 Bed I3 / M3 Private MD: Pawan, [facility] Care Disposition: 12/21/16 13:30 Discharged to Home/Self Care. Impression: Calculus of kidney - 9mm Left Intrarenal Calculus, Other hydronephrosis - Right kidney, No stone on CT (chronic), Lower abdominal pain, unspecified - RLQ with Right Flank Pain, Abnormal results of kidney function studies - Chronic Renal Failure, Diverticulosis of large intestine without perforation or abscess without bleeding. - Condition is Stable. - Discharge Instructions: Abdominal Pain, Adult, Flank Pain, Kidney Stones. - Prescriptions for Reglan 10 mg Oral Tablet - take 1 tablet by ORAL route every 6 hours take 30 minutes before meals and at bedtime; 20 tablet. Flomax 0.4 mg Oral Capsule, Sust. Release 24 hr - take 1 capsule by ORAL route once daily 1/2 hour following the same meal each day; 30 capsule. Percocet 5- 325 mg Oral Tablet - take 1 tablet by ORAL route every 6 hours As needed MDD: 4 tabs; 20 tablet. - Medication Reconciliation, Local Pharmacy Hours form. - Follow up: [facility] Pawan; When: 1 - 2 days; Reason: Recheck today's complaints, Continuance of care. Follow up: Emergency Department; Reason: Worsening of conditions. - Problem is new. - Symptoms have improved. - Notes: Pt understands to f/u with his Urologist in 1-2 days or in the ER sooner if s/s worsen. Historical: - Allergies: no known allergies; - Home Meds: 1. loratadine 10 mg Oral tab 1 tab once daily (Last dose: 12/21/2016 07:30) 2. Dulera 100-5 mcg/actuation inhalation HFAA prn 3. amitriptyline 150 mg oral tab hs (Last dose: 12/20/2016) 4. Vitamin D Oral 46673 unit Q 2 weeks 5. omeprazole 20 mg Oral cpDR 1 cap once daily (Last dose: 12/21/2016 07:30) 6. montelukast 10 mg oral tab 1 tab once daily (Last dose: 12/21/2016 07:30) 7. Lantus 47 units Sub-Q twice a day (Last dose: 12/21/2016 07:30) 8. Humalog sliding scale Sub-Q three times a day 9. pota citrate CR 1080mg twice a day 10. allopurinol 300 mg Oral tab 1 tab once daily (Last dose: 12/21/2016 07:30) 11. tolterodine 4 mg oral cp24 1 cap once daily (Last dose: 12/21/2016 07:30) 12. carvedilol 6.25 mg oral tab 1 tab 2 times per day (Last dose: 12/21/2016 07:30) 13. furosemide 20 mg Oral tab 1 tab once daily (Last dose: 12/21/2016 07:30) 14. Entresto 24-26 mg- 1 in am and half pm oral tab 15. aspirin 81 mg Oral TbEC 1 tab weekly 16. atorvastatin 40 mg oral tab 1 tab once daily (Last dose: 12/21/2016 07:30) - PMHx: Diabetes - IDDM: controlled; Hemochromatosis; Hypertension; Kidney stones; Myocardial infarction; CHF; renal cell cancer right kidney; - PSHx: Appendectomy; Lithitripsy; - Social history: Smoking status: Chewing Tobacco No barriers to communication noted, The patient speaks fluent Ukrainian, Speaks appropriately for age. - Family history: Not pertinent. - : The pt / caregiver states he / she is not on anticoagulants. Home medication list is obtained from the patient. - Exposure Risk Screening:: None identified. Vital Signs: 12/21 10:09 BP 134 / 82; Pulse 70; Resp 18; Temp 96; Pulse Ox 96% ; Weight 116.57 kg / 256.99 lbs; jlm Height 6 ft. 2 in. (187.96 cm); Pain 6/10; 13:47 BP 130 / 85; Pulse 69; Resp 16; Temp 99.3(O); Pulse Ox 92% on R/A; Pain 8/10; sew 10:09 Body Mass Index 33.00 (116.57 kg, 187.96 cm) jl MDM: 10:19 Ondansetron 4 mg IVP once ordered. ef1 10:19 IV Saline Lock ordered. ef1 10:19 Undress patient appropriately for examination ordered. ef1 10:20 morphine 4 mg IVP once ordered. ef1 10:20 Amylase Ordered. EDMS 10:20 Basic Metabolic Profile Ordered. EDMS 10:20 CBC with Diff Ordered. EDMS 10:20 Lipase Ordered. EDMS 10:20 Liver Profile Ordered. EDMS 10:20 Urinalysis Ordered. EDMS 10:20 Urine Culture Ordered. EDMS 10:20 CT ABD & PELVIS: No Contrast Ordered. EDMS 10:21 NOTHING BY MOUTH+DIET ordered. EDMS 10:38 NS 0.9% 500 ml IV at bolus once ordered. ef1 10:48 [facility] Payment Agreement was scanned into [employer] and attached to record. jp5 10:48 Financial registration complete. jp5 11:37 Basic Metabolic Profile Reviewed. ef1 11:37 CBC with Diff Reviewed. ef1 11:37 Liver Profile Reviewed. ef1 11:37 Amylase Reviewed. ef1 11:37 Lipase Reviewed. ef1 11:37 CT ABD & PELVIS: No Contrast Reviewed. ef1 11:44 Ondansetron 4 mg IVP once ordered. ef1 12:00 Bladder Scan please ordered. ef1 12:14 morphine 4 mg IVP once ordered. ef1 12:14 Straight cath ordered. ef1 12:55 Urinalysis Reviewed. ef1 13:06 ECG WITH READING ER PHYS+CARDIAG ordered. EDMS 13:23 Barnhart ordered. ef1 13:30 oxyCODONE-acetaminophen 5 mg-325 mg 1 tabs PO once ordered. ef1 13:40 Misc Aerodynamics Teacher Order ordered. ef1 13:43 [facility] Order complete. pml 17:42 T-Sheet-- Draft Copy was scanned into [employer] and attached to record. klr 12/22 09:50 Urine Culture Reviewed. sd1 12:23 Radiology Report was scanned into [employer] and attached to record. gb Administered Medications: 12/21 10:42 Drug: Ondansetron 4 mg [ondansetron HCl 2 mg/mL intravenous solution (2 mL)] Route: dls IVP; Site: left antecubital; 10:42 Drug: morphine 4 mg [morphine 4 mg/mL intravenous cartridge (1 mL)] Route: IVP; Site: dls left antecubital; 10:49 Drug: NS 0.9% 500 ml [sodium chloride 0.9 % intravenous solution] Route: IV; Rate: dls bolus; Site: left antecubital; 12:30 Follow up: IV Status: Completed infusion; IV Intake: 500ml pml 11:50 Drug: Ondansetron 4 mg [ondansetron HCl 2 mg/mL intravenous solution (2 mL)] Route: pml IVP; Site: left antecubital; 12:20 Drug: morphine 4 mg [morphine 4 mg/mL intravenous cartridge (1 mL)] Route: IVP; Site: dls left antecubital; 13:42 Drug: oxyCODONE-acetaminophen 1 tabs [oxycodone-acetaminophen 5 mg-325 mg tablet (1 pml tabs)] Route: PO; 13:45 Follow up: Response: Confirmed pt not driving.; Pt left department before re-evaluation pml is appropriate Signatures: Dispatcher [employer] EDMS Christen Junior MD MD sd1 Sidra Cavanaugh RN RN [facility] Rochelle Mcguire, Reg Reg gb Abby Farrell, PA-C PA-C ef1 Rozina Aiken RN RN pml Price, Jennalee jp5 Sarah Guzman Debra RN dls The chart was reviewed and I authenticate all verbal orders and agree with the evaluation and treatment provided.Corrections: (The following items were deleted from the chart) 13:45 13:06 BED REQUEST+ADM ordered. EDTN EDTN Attachments: 10:48 [facility] Payment Agreement jp5 17:42 T-Sheet-- Draft Copy klr Chart Complete MTDD
--- NOTE | 2016-12-23 14:52 | EDDOCDS ---
Physician Documentation [facility] Name: Jimbo Matthews Age: 66 yrs Sex: Male : 1950 Arrival Date: 12/21/2016 Time: 10:04 Bed I3 / M3 Private MD: Pawan, [facility] Care Disposition: 12/21/16 13:30 Discharged to Home/Self Care. Impression: Calculus of kidney - 9mm Left Intrarenal Calculus, Other hydronephrosis - Right kidney, No stone on CT (chronic), Lower abdominal pain, unspecified - RLQ with Right Flank Pain, Abnormal results of kidney function studies - Chronic Renal Failure, Diverticulosis of large intestine without perforation or abscess without bleeding. - Condition is Stable. - Discharge Instructions: Abdominal Pain, Adult, Flank Pain, Kidney Stones. - Prescriptions for Reglan 10 mg Oral Tablet - take 1 tablet by ORAL route every 6 hours take 30 minutes before meals and at bedtime; 20 tablet. Flomax 0.4 mg Oral Capsule, Sust. Release 24 hr - take 1 capsule by ORAL route once daily 1/2 hour following the same meal each day; 30 capsule. Percocet 5- 325 mg Oral Tablet - take 1 tablet by ORAL route every 6 hours As needed MDD: 4 tabs; 20 tablet. - Medication Reconciliation, Local Pharmacy Hours form. - Follow up: [facility] Pawan; When: 1 - 2 days; Reason: Recheck today's complaints, Continuance of care. Follow up: Emergency Department; Reason: Worsening of conditions. - Problem is new. - Symptoms have improved. - Notes: Pt understands to f/u with his Urologist in 1-2 days or in the ER sooner if s/s worsen. Historical: - Allergies: no known allergies; - Home Meds: 1. loratadine 10 mg Oral tab 1 tab once daily (Last dose: 12/21/2016 07:30) 2. Dulera 100-5 mcg/actuation inhalation HFAA prn 3. amitriptyline 150 mg oral tab hs (Last dose: 12/20/2016) 4. Vitamin D Oral 83848 unit Q 2 weeks 5. omeprazole 20 mg Oral cpDR 1 cap once daily (Last dose: 12/21/2016 07:30) 6. montelukast 10 mg oral tab 1 tab once daily (Last dose: 12/21/2016 07:30) 7. Lantus 47 units Sub-Q twice a day (Last dose: 12/21/2016 07:30) 8. Humalog sliding scale Sub-Q three times a day 9. pota citrate CR 1080mg twice a day 10. allopurinol 300 mg Oral tab 1 tab once daily (Last dose: 12/21/2016 07:30) 11. tolterodine 4 mg oral cp24 1 cap once daily (Last dose: 12/21/2016 07:30) 12. carvedilol 6.25 mg oral tab 1 tab 2 times per day (Last dose: 12/21/2016 07:30) 13. furosemide 20 mg Oral tab 1 tab once daily (Last dose: 12/21/2016 07:30) 14. Entresto 24-26 mg- 1 in am and half pm oral tab 15. aspirin 81 mg Oral TbEC 1 tab weekly 16. atorvastatin 40 mg oral tab 1 tab once daily (Last dose: 12/21/2016 07:30) - PMHx: Diabetes - IDDM: controlled; Hemochromatosis; Hypertension; Kidney stones; Myocardial infarction; CHF; renal cell cancer right kidney; - PSHx: Appendectomy; Lithitripsy; - Social history: Smoking status: Chewing Tobacco No barriers to communication noted, The patient speaks fluent Albanian, Speaks appropriately for age. - Family history: Not pertinent. - : The pt / caregiver states he / she is not on anticoagulants. Home medication list is obtained from the patient. - Exposure Risk Screening:: None identified. Vital Signs: 12/21 10:09 BP 134 / 82; Pulse 70; Resp 18; Temp 96; Pulse Ox 96% ; Weight 116.57 kg / 256.99 lbs; jlm Height 6 ft. 2 in. (187.96 cm); Pain 6/10; 13:47 BP 130 / 85; Pulse 69; Resp 16; Temp 99.3(O); Pulse Ox 92% on R/A; Pain 8/10; sew 10:09 Body Mass Index 33.00 (116.57 kg, 187.96 cm) jl MDM: 10:19 Ondansetron 4 mg IVP once ordered. ef1 10:19 IV Saline Lock ordered. ef1 10:19 Undress patient appropriately for examination ordered. ef1 10:20 morphine 4 mg IVP once ordered. ef1 10:20 Amylase Ordered. EDMS 10:20 Basic Metabolic Profile Ordered. EDMS 10:20 CBC with Diff Ordered. EDMS 10:20 Lipase Ordered. EDMS 10:20 Liver Profile Ordered. EDMS 10:20 Urinalysis Ordered. EDMS 10:20 Urine Culture Ordered. EDMS 10:20 CT ABD & PELVIS: No Contrast Ordered. EDMS 10:21 NOTHING BY MOUTH+DIET ordered. EDMS 10:38 NS 0.9% 500 ml IV at bolus once ordered. ef1 10:48 [facility] Payment Agreement was scanned into [employer] and attached to record. jp5 10:48 Financial registration complete. jp5 11:37 Basic Metabolic Profile Reviewed. ef1 11:37 CBC with Diff Reviewed. ef1 11:37 Liver Profile Reviewed. ef1 11:37 Amylase Reviewed. ef1 11:37 Lipase Reviewed. ef1 11:37 CT ABD & PELVIS: No Contrast Reviewed. ef1 11:44 Ondansetron 4 mg IVP once ordered. ef1 12:00 Bladder Scan please ordered. ef1 12:14 morphine 4 mg IVP once ordered. ef1 12:14 Straight cath ordered. ef1 12:55 Urinalysis Reviewed. ef1 13:06 ECG WITH READING ER PHYS+CARDIAG ordered. EDMS 13:23 Barnhart ordered. ef1 13:30 oxyCODONE-acetaminophen 5 mg-325 mg 1 tabs PO once ordered. ef1 13:40 Misc Motion Picture Actor Order ordered. ef1 13:43 [facility] Order complete. pml 17:42 T-Sheet-- Draft Copy was scanned into [employer] and attached to record. klr 12/22 09:50 Urine Culture Reviewed. sd1 12:23 Radiology Report was scanned into [employer] and attached to record. gb Administered Medications: 12/21 10:42 Drug: Ondansetron 4 mg [ondansetron HCl 2 mg/mL intravenous solution (2 mL)] Route: dls IVP; Site: left antecubital; 10:42 Drug: morphine 4 mg [morphine 4 mg/mL intravenous cartridge (1 mL)] Route: IVP; Site: dls left antecubital; 10:49 Drug: NS 0.9% 500 ml [sodium chloride 0.9 % intravenous solution] Route: IV; Rate: dls bolus; Site: left antecubital; 12:30 Follow up: IV Status: Completed infusion; IV Intake: 500ml pml 11:50 Drug: Ondansetron 4 mg [ondansetron HCl 2 mg/mL intravenous solution (2 mL)] Route: pml IVP; Site: left antecubital; 12:20 Drug: morphine 4 mg [morphine 4 mg/mL intravenous cartridge (1 mL)] Route: IVP; Site: dls left antecubital; 13:42 Drug: oxyCODONE-acetaminophen 1 tabs [oxycodone-acetaminophen 5 mg-325 mg tablet (1 pml tabs)] Route: PO; 13:45 Follow up: Response: Confirmed pt not driving.; Pt left department before re-evaluation pml is appropriate Signatures: Dispatcher [employer] EDMS Christen Junior MD MD sd1 Sidra Cavanaugh RN RN [facility] Rochelle Mcguire, Reg Reg gb Abby Farrell, PA-C PA-C ef1 Rozina Aiken RN RN pml Price, Jennalee jp5 Sarah Guzman Debra RN dls The chart was reviewed and I authenticate all verbal orders and agree with the evaluation and treatment provided.Corrections: (The following items were deleted from the chart) 13:45 13:06 BED REQUEST+ADM ordered. EDSC EDSC Attachments: 10:48 [facility] Payment Agreement jp5 17:42 T-Sheet-- Draft Copy klr Chart Complete MTDD
== END 2016-12-21 13:51 | disposition home or self-care (01) ==
LOC: M ED 10:04
DX: N20.1 Calculus of ureter (principal); N13.30 Unspecified hydronephrosis; K57.30 Diverticulosis of large intestine without perforation or abscess without bleeding; E11.9 Type 2 diabetes mellitus without complications; I10 Essential (primary) hypertension; I25.2 Old myocardial infarction; I50.9 Heart failure, unspecified; E83.119 Hemochromatosis, unspecified; C64.1 Malignant neoplasm of right kidney, except renal pelvis; F17.228 Nicotine dependence, chewing tobacco, with other nicotine-induced disorders; Z79.4 Long term (current) use of insulin; Z79.82 Long term (current) use of aspirin; Z79.899 Other long term (current) drug therapy
CPT/HCPCS: 36415; 51702; 74176; 80048; 80076; 81001; 82150; 83690; 85025; 87086; 96361; 96374; 96375; 96376; 99285; J2405